=== PATIENT | male | born 1965 | race Caucasian/White ===

== ENCOUNTER 2016-12-12 12:27 | Outpatient (CLI) | payer OTHER ==
[2016-03-25 07:34] VITALS: BMI 23.6
[2016-12-12 12:45] LABS: ADD URINE MICROSCOPIC NO; BILIRUBIN,URINE Negative (NEGATIVE); KETONES,URINE Negative (NEGATIVE); LEUKOCYTE ESTERASE ,URINE Negative (NEGATIVE); NITRITE,URINE Negative (NEGATIVE); PH,URINE 5.5 (5-9); PROTEIN,URINE Negative (NEGATIVE); URINE, BLOOD Negative (NEGATIVE)
== END 2016-12-12 12:28 | disposition home or self-care (01) ==
LOC: LAB 12:27
PROVIDERS: ATTEND Emergency Medicine
DX: R10.30 Lower abdominal pain, unspecified (principal); Z12.5 Encounter for screening for malignant neoplasm of prostate
CPT/HCPCS: 36415; 81001

== ENCOUNTER 2016-12-28 07:27 | Outpatient (CLI) | payer OTHER ==
[2016-03-25 07:34] VITALS: BMI 23.6
[2016-12-28 07:55] LABS: BASOPHILS % (AUTO) 0.5 % (0.0-3.0); EOSINOPHILS # (AUTO) 0.1 K/ul (0.0-0.7); EOSINOPHILS % (AUTO) 0.7 % (0.0-7.0); HEMATOCRIT 41.6 % (42.0-52.0); HEMOGLOBIN 14.4 g/dl (14.0-18.0); IMMATURE GRANULOCYTE % (AUTO) 0.4 % (0.0-5.0); LYMPHOCYTES # (AUTO) 2.6 K/uL (0.60-3.4); MEAN CORPUSCULAR HEMOGLOBIN 28.6 pg (27.0-31.0); MEAN CORPUSCULAR HGB CONC 34.6 (31.8-35.4); MEAN CORPUSCULAR VOLUME 82.7 fl (80.0-94.0); MONOCYTES # (AUTO) 0.6 K/uL (0.4-2.0); MONOCYTES % (AUTO) 7.2 (0-10); NEUTROPHILS # (AUTO) 5.1 K/ul (2.0-6.9); NEUTROPHILS % (AUTO) 60.2; PLATELET COUNT 280 10^3/uL (140-440); RED BLOOD COUNT 5.03 10^6/ul (4.70-6.10); WHITE BLOOD COUNT 8.44 K/ul (4.2-10.2)
[2016-12-28 08:21] LABS: ALBUMIN 3.9 g/dL (3.4-5.0); ALBUMIN/GLOBULIN RATIO 1.08; BILIRUBIN,TOTAL 0.79 mg/dL (0.00-1.20); BUN/CREATININE RATIO 8.26; CALCIUM 9.6 mg/dL (8.2-10.2); CHOL/HDL RATIO 5.4 (4.5-6.4); CREATININE 1.21 mg/dL (0.60-1.10); TOTAL PROTEIN 7.5 g/dL (6.4-8.2)
== END 2016-12-28 07:28 | disposition home or self-care (01) ==
LOC: LAB 07:27
PROVIDERS: ATTEND Nurse Practitioner Family
DX: E78.5 Hyperlipidemia, unspecified (principal)
CPT/HCPCS: 36415; 80053; 80061; 85025

== ENCOUNTER 2017-01-02 14:01 | Outpatient (CLI) | payer OTHER ==
[2016-03-25 07:34] VITALS: BMI 23.6
--- NOTE | 2017-01-02 14:34 | US ---
EXAM: Ultrasound right groin HISTORY: Right lower abdominal/groin pain COMPARISON: None available TECHNIQUE: Whelan-scale and color Doppler images FINDINGS: No solid or cystic masses seen in the area concern. No subcutaneous edema detected. IMPRESSION: No sonographic abnormality in the area of concern.
--- NOTE | 2017-01-02 14:34 | US ---
EXAM: Ultrasound groin, left. HISTORY: Left groin tenderness for 1 year. No injury. FINDINGS: Whelan-scale ultrasound and color Doppler imaging were performed in the region of interest described as the left lower quadrant/groin area. No abnormalities, masses or fluid collections were identified in this region. Visualized urinary bladder was grossly within normal limits. IMPRESSION: No abnormalities identified sonographically. If indicated, correlation with enhanced CT can be cons idered.
== END 2017-01-02 14:02 | disposition home or self-care (01) ==
LOC: RAD 14:01
PROVIDERS: ATTEND Emergency Medicine
DX: R10.30 Lower abdominal pain, unspecified (principal)
CPT/HCPCS: 76882

== ENCOUNTER 2017-04-26 07:56 | Outpatient (CLI) ==
[2016-03-25 07:34] VITALS: BMI 23.6
[2017-04-26 08:59] LABS: ALBUMIN 4.1 g/dL (3.4-5.0); ALBUMIN/GLOBULIN RATIO 1.24; BILIRUBIN,TOTAL 0.89 mg/dL (0.00-1.20); BUN/CREATININE RATIO 8.49; CHOL/HDL RATIO 3.9 (4.5-6.4); CREATININE 1.06 mg/dL (0.60-1.10); TOTAL PROTEIN 7.4 g/dL (6.4-8.2)
[2017-04-26 09:06] LABS: BASOPHILS % (AUTO) 0.4 % (0.0-3.0); EOSINOPHILS # (AUTO) 0.1 K/ul (0.0-0.7); HEMATOCRIT 41.6 % (42.0-52.0); HEMOGLOBIN 14.6 g/dl (14.0-18.0); IMMATURE GRANULOCYTE % (AUTO) 0.3 % (0.0-5.0); LYMPHOCYTES # (AUTO) 2.4 K/uL (0.60-3.4); LYMPHOCYTES % (AUTO) 33.5 (10.0-50.0); MEAN CORPUSCULAR HGB CONC 35.1 (31.8-35.4); MEAN CORPUSCULAR VOLUME 82.5 fl (80.0-94.0); MONOCYTES # (AUTO) 0.5 K/uL (0.4-2.0); NEUTROPHILS # (AUTO) 4.2 K/ul (2.0-6.9); NEUTROPHILS % (AUTO) 57.8; PLATELET COUNT 268 10^3/uL (140-440); RED BLOOD COUNT 5.04 10^6/ul (4.70-6.10); WHITE BLOOD COUNT 7.25 K/ul (4.2-10.2)
== END 2017-04-26 07:57 | disposition home or self-care (01) ==
LOC: LAB 07:56
PROVIDERS: ATTEND Emergency Medicine
DX: E78.2 Mixed hyperlipidemia (principal); I10 Essential (primary) hypertension; Z87.19 Personal history of other diseases of the digestive system
CPT/HCPCS: 36415; 80053; 80061; 82150; 83690; 84443; 85025

== ENCOUNTER 2017-04-27 11:02 | Outpatient (CLI) ==
[2016-03-25 07:34] VITALS: BMI 23.6
--- NOTE | 2017-04-27 11:48 | CT ---
EXAM: CT Abdomen without contrast. HISTORY: Chronic pancreatitis. Upper abdominal pain. COMPARISON: 04/02/2015. TECHNIQUE: Multiple axial images of the abdomen were obtained without intravenous contrast. Images were reformatted in the coronal plane. FINDINGS: Please note that evaluation of the abdominal structures is limited due to lack of intrave nous contrast. The lung bases are clear. Kyphoplasty changes noted at L1. Posterior and anterior lumbar interbody fusion and laminectomy changes noted at L5-S1. The right L5 pedicle screw is located lateral to th e vertebral body. Gallbladder is absent. Posterior right hepatic lobe cyst is stable. Pancreas appears homogeneous w ithout adjacent inflammation. The spleen and adrenal glands demonstrate normal contour. No calcifi ed renal stones or hydronephrosis detected. The bowel is normal in course and caliber without evidence for obstruction or inflammatory process. The appendix is normal. Colonic diverticulosis identified. Small fat-containing umbilical hernia noted. No free fluid or free air identified. Visualized urinary bladder is unremarkable. Probable clip in the left rectus sheath on axial image 61. IMPRESSION: No acute abnormality within the abdomen.
== END 2017-04-27 11:03 | disposition home or self-care (01) ==
LOC: RAD 11:02
PROVIDERS: ATTEND Emergency Medicine
DX: K86.1 Other chronic pancreatitis (principal)

== ENCOUNTER 2017-04-28 11:40 | Outpatient (CLI) ==
[2016-03-25 07:34] VITALS: BMI 23.6
[2017-04-28 12:08] LABS: AMYLASE 74 U/L (25-115); LIPASE 35 U/L (8-78)
== END 2017-04-28 11:41 | disposition home or self-care (01) ==
LOC: LAB 11:40
PROVIDERS: ATTEND Emergency Medicine
DX: K86.1 Other chronic pancreatitis (principal); Z87.19 Personal history of other diseases of the digestive system
CPT/HCPCS: 36415; 82150; 83690

== ENCOUNTER 2017-08-31 09:56 | Outpatient (CLI) ==
[2016-03-25 07:34] VITALS: BMI 23.6
== END 2017-08-31 09:57 | disposition home or self-care (01) ==
LOC: LAB 09:56
PROVIDERS: ATTEND Emergency Medicine
DX: E78.2 Mixed hyperlipidemia (principal); E34.9 Endocrine disorder, unspecified
CPT/HCPCS: 36415; 80061; 84403

== ENCOUNTER 2018-01-02 06:57 | Outpatient (CLI) ==
[2016-03-25 07:34] VITALS: BMI 23.6
== END 2018-01-02 06:58 | disposition home or self-care (01) ==
LOC: LAB 06:57
PROVIDERS: ATTEND Emergency Medicine
DX: E78.2 Mixed hyperlipidemia (principal); I10 Essential (primary) hypertension; D50.8 Other iron deficiency anemias
CPT/HCPCS: 36415; 80053; 80061; 82607; 82728; 82746; 83540; 83550; 84443; 84466; 85025; 85045

== ENCOUNTER 2018-05-01 08:19 | Outpatient (CLI) ==
[2016-03-25 07:34] VITALS: BMI 23.6
== END 2018-05-01 08:20 | disposition home or self-care (01) ==
LOC: LAB 08:19
PROVIDERS: ATTEND Emergency Medicine
DX: E53.8 Deficiency of other specified B group vitamins (principal); D50.8 Other iron deficiency anemias; I10 Essential (primary) hypertension
CPT/HCPCS: 36415; 80053; 80061; 84443; 85025

== ENCOUNTER 2018-05-09 18:39 | Outpatient (CLI) ==
[2016-03-25 07:34] VITALS: BMI 23.6
== END 2018-05-09 18:40 | disposition home or self-care (01) ==
LOC: FCC-LAB 18:39
PROVIDERS: ATTEND General Practice
DX: Z12.11 Encounter for screening for malignant neoplasm of colon (principal)

== ENCOUNTER 2018-07-18 07:44 | Outpatient (CLI) | payer OTHER ==
[2016-03-25 07:34] VITALS: BMI 23.6
== END 2018-07-18 07:45 | disposition home or self-care (01) ==
LOC: LAB 07:44
PROVIDERS: ATTEND General Practice
DX: R10.30 Lower abdominal pain, unspecified (principal); I10 Essential (primary) hypertension; R79.89 Other specified abnormal findings of blood chemistry
CPT/HCPCS: 36415; 80053; 80061; 81001; 85025

== ENCOUNTER 2018-11-08 14:19 | Outpatient (CLI) ==
[2018-09-28 07:24] VITALS: BMI 24.5
--- NOTE | 2018-11-08 14:44 | DI ---
EXAM: Left ankle three views HISTORY: Ankle pain. FINDINGS: Joints of the ankle appear normal. Small plantar surface calcaneal spur. There is mild b raúl spurring of the posterior calcaneus. IMPRESSION: 1. Spurring of the calcaneus. Otherwise unremarkable.
--- NOTE | 2018-11-08 14:46 | DI ---
EXAM: Three views of the left foot. History: Left foot pain. Comparison: Left foot radiograph 05/18/2015. Findings: No acute fracture or dislocation. 9 mm plantar spur and small enthesiophyte at the insert ion of the Achilles tendon. Joint spaces are preserved. No abnormal calcifications or radiopaque fo reign bodies. Impression: 1. No acute osseous abnormality. 2. Calcaneal enthesiopathy
== END 2018-11-08 14:20 | disposition home or self-care (01) ==
LOC: RAD 14:19
PROVIDERS: ATTEND General Practice
DX: M25.572 Pain in left ankle and joints of left foot (principal)

== ENCOUNTER 2018-12-24 15:30 | Outpatient (RCR) ==
[2018-09-28 07:24] VITALS: BMI 24.5
--- NOTE | 2018-12-13 15:52 | RS.OPPTEV2 ---
Date of Note: 12/11/18 Visit #: 1 Number of visits approved by Insurance: 20 visits per year Date of Evaluation: 12/11/18 Payer Source: Insurance Treatment Diagnosis: Left foot pain, OA of left mid foot History of Condition/Mechanism of Injury:: Reports no known injury at time of onset of pain. States pain has been for approximately 5 weeks. Prior Level of Function.....Patient was independent with: ADL's, Self Care, Work /Vocation, Caregiving, Ambulation/Mobility, Community Integration/Access Functional Limitations: Standing, Squatting, Ambulation, Community Access/ Integration Current Subjective/complaints:: Mr. Segovia reports left foot mid to forefoot pain. States he has been wearing new shoes for the last couple of weeks and can tell that his pain is improving. States he may have swelling in the foot. He cannot tolerate his shoe tied as tight as it is on the right foot. States pain is on the top of the foot. He was given a Prednisone for 10 days, and did not feel improvement. He tries to prop up his foot at work or home when he can. He has tried icing the foot. Reports previous issue with Plantar fasciitis in this foot. States pain is not anything like that. 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 Treatment Side (optional): Left Medical History Medical History: Hypertension Surgical History Comments:: ALIF L5/S1 January 2013, Kyphoplasty L1 January 2015 Smoking Status: Never smoker Diagnostic Testing/Imaging:: States he had Xrays of the foot that ruled out a stress fracture. Hx Home Medications: Losartan,Atorvastatin, Nucynta Patient's Goals: His goal is to get relief of foot pain. Pain Assessment - Pain Description Pain Location: Left mid to forefoot pain Pain Description: Aching Current Pain Intensity: not quantified Functional Outcome Measure LE Functional Scale: 55 (55/80=31.25% impairment) - G Codes & Severity Modifier G Codes & Modifier: NA Source of G Code score: NA Observation - Observation Inspection: Left foot demonstrates mild puffiness at the base of the toes 2-4. No discoloration or excessive edema noted. Comments: Demonstrates normal longitudinal arch bilaterally in weight bearing stance. Girth Measurement Lower: Metheads left 23.5, right 23.5 cm. 6 cm in from medial malleoil: left 23 cm, right 23 cm. Figure 8: left 51 cm, right 52 cm Gait - Gait Pattern Gait Comments: Patient ambulates with slight decreased stance on the left LE. Demonstrates decreased push off on the left LE. Ankle ROM: Bilaterally WFL's Ankle Muscle Strength: Bilaterally WFL's - Left Ankle ROM Comments: Patient able to flex and extend his toes, with some discomfort reports in the mid foot. - Left Ankle Strength Left Dorsiflexion: 5 Normal Left Plantar flexion: 5 Normal Left Eversion: 5 Normal Left Inversion: 5 Normal Comments: No pain with MMT of ankle, toe extension and flexion 5/5. Some discomfort at mid/forefoot with full flexion. - Right Ankle Strength Right Dorsiflexion: 5 Normal Right Plantarflexion: 5 Normal Right Eversion: 5 Normal Right Inversion: 5 Normal Palpation Comments:: Tenderness with moderate pressure over medial portion of Navicular, over the lateral and intermediate Cuneiforms, and over Cuboid and tuberosity of 5th metatarsal. AP glides of the metatarsals cause discomfort, especially with the 3rd, 4th , and 5th metatarsals. Reports tenderness with palpation over the tuberosity of the 5th metatarsal. - Treatment Modality: Ultrasound Parameters/Method Applied: 1.2 w/cm2 continuous to volar and dorsal aspect of midfoot X 9 mins. Patient Position: Sitting Interventions - Exercise/Activities/Manual Therapy Exercises/Activities: Discussed mechanics of the foot and proper shoe wear and/ or orthotics to provide appriopriate support of the bones of the foot, especially if OA is present. Manual Therapy: AP glides of Metatarsals HOME EXERCISE PROGRAM: None today - Charges Timed Code Treatment Minutes: 9 mins Total Treatment Time: 42 mins Procedures billed for this date of service:: JULIEN Delgado, US EVALUATION COMPLEXITY LEVEL EVALUATION COMPLEXITY LEVEL: HISTORY: Low (prior plantar fasciitis), EXAM OF BODY SYSTEMS: Low, CLINICAL PRESENTATION: Low, CLINICAL DECISION MAKING: Low Assessment Assessment: Patient presents to therapy with a diagnosis of osteoarthritis of left midfoot. He reports pain in the left foot mid/forefoot with weight bearing. Would benefit from metatarsal pad and arch support. Modalities and gentle Joint Mobilizations may help decreased pain and inflammation in the midfoot. Patient Education: Education of diagnosis, Body/Joint mechanics, Activity Modification, Education of Plan of Care Rehab Potential: Good Short Term Goals Goal #1: Patient independent and compliant with basic HEP. Goal to be met by: 12/20/18 Goal #2: Pt to report minimal left foot pain with standing and walking. Goal to be met by: 12/20/18 Goal #3: . Goal #4: . Senior Living Goals Goal #1: Pt able to ambulate community distances w/o dev & min. to no L foot pain. Goal to be met by: 01/05/19 Goal #2: Pt able to work full shift with minimal to no left foot pain. Goal to be met by: 01/05/19 Goal #3: Score on LE functional scale improved to 75/80. Goal to be met by: 01/05/19 Goal #4: . Plan - Treatment to be Provided Procedures: Therapeutic Exercises, Therapeutic Activity, Manual Therapy, Patient Education Modalities: Ultrasound/Phonophoresis, Class IV Laser, Iontophoresis, Cryotherapy , Hot Packs - Treatment Plan Frequency: 3 X week Duration: 3 weeks Dates of Candle Molder Machine Goals: 01/05/19 Expiration date of current Insurance Approval:: NA - Treatment Code (1) Left foot pain Code(s): M79.672 - PAIN IN LEFT FOOT Comments: M79.672 (2) Metatarsalgia Code(s): M77.40 - METATARSALGIA, UNSPECIFIED FOOT Qualifiers: Laterality: left Qualified Code(s): M77.42 - Metatarsalgia, left foot
--- NOTE | 2018-12-19 09:10 | RS.OPPTDN ---
Subjective Date of Note: 12/18/18 Visit #: 2 Number of visits approved by Insurance: NA Date of Evaluation: 12/11/18 Payer Source: Insurance Treatment Diagnosis: Left foot pain, OA of left mid foot Current Subjective/complaints:: States his foot was hurting quite a bit yesterday. 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 States he elevates his foot when he can. Pain Assessment - Pain Description Pain Location: left mid foot Current Pain Intensity: mild discomfort - Treatment Modality: Ultrasound Parameters/Method Applied: 1.0 w/cm2 continuous X 10 mins to volar and dorsal aspect of mid foot. Patient Position: Sitting - Heat/Cryotherapy Treatment: Hot Pack Comments:: X 10 mins to left foot prior to US. Interventions - Exercise/Activities/Manual Therapy Exercises/Activities: none Manual Therapy: AP glides of Metatarsals with directional massage to foot. Also stretching, of toe flexors and heel cord. Total minutes of Manual Therapy: X 14 mins HOME EXERCISE PROGRAM: None today - Objective Findings Observations,measurements,etc.: Demonstrates swelling in the left mid-forefoot region. - Charges Timed Code Treatment Minutes: 24 mins Total Treatment Time: 34 mins Procedures billed for this date of service:: HP, US, manual therapy Assessment: Patient with left mid foot pain with weight bearing activities. Demonstrates swelling in the dorsal aspect of the left foot today. Treatment of modalities and manual therapy should help relieve swelling and pain. Patient Education: Education of diagnosis, Activity Modification, Education of Plan of Care Short Term Goals Goal #1: Patient independent and compliant with basic HEP. Goal to be met by: 12/20/18 Goal #2: Pt to report minimal left foot pain with standing and walking. Goal to be met by: 12/20/18 Goal #3: . Goal #4: . Cloud Software Engineer Goals Goal #1: Pt able to ambulate community distances w/o dev & min. to no L foot pain. Goal to be met by: 01/05/19 Goal #2: Pt able to work full shift with minimal to no left foot pain. Goal to be met by: 01/05/19 Goal #3: Score on LE functional scale improved to 75/80. Goal to be met by: 01/05/19 Goal #4: . Plan Dates of Cloud Software Engineer Goals: 01/05/19 Expiration date of current Insurance Approval:: NA PLAN: continue joint mobs, directional massage and modalities.
--- NOTE | 2018-12-21 12:01 | RS.OPPTDN ---
Subjective Date of Note: 12/20/18 Visit #: 3 Number of visits approved by Insurance: NA Date of Evaluation: 12/11/18 Payer Source: Insurance Treatment Diagnosis: Left foot pain, OA of left mid foot Current Subjective/complaints:: Reports discomfort at mid foot, at base of toes and just below the lateral malleoli today. States the top of the foot is not as tender as it was. *Precautions: recent lumbar surgery Pain Assessment - Pain Description Pain Location: pain at base of toes, mid foot, and inferior to lateral malleoli - Treatment Modality: Ultrasound Parameters/Method Applied: X 12 mins total: 8 mins to dorsum of foot mid to forefoot and inferior to lateral malleoli, 4 mins to volar aspect of mid foot. Patient Position: Sitting Interventions - Exercise/Activities/Manual Therapy Exercises/Activities: none Manual Therapy: AP glides of Metatarsals with directional massage to foot. Also stretching, of toe flexors and heel cord. Total minutes of Manual Therapy: X 12 mins HOME EXERCISE PROGRAM: None today - Charges Timed Code Treatment Minutes: 24 mins Total Treatment Time: 24 mins Procedures billed for this date of service:: US, Man therapy Assessment: Increased pain in other areas of the foot/ankle. Describes less tenderness on the top of the foot. May benefit from continued treatment of modalities. Patient Education: Education of Plan of Care Short Term Goals Goal #1: Patient independent and compliant with basic HEP. Goal to be met by: 12/20/18 Goal #2: Pt to report minimal left foot pain with standing and walking. Goal to be met by: 12/20/18 Comments:: Pain dependent on amount of activity. Goal #3: . Goal #4: . Prison Goals Goal #1: Pt able to ambulate community distances w/o dev & min. to no L foot pain. Goal to be met by: 01/05/19 Goal #2: Pt able to work full shift with minimal to no left foot pain. Goal to be met by: 01/05/19 Goal #3: Score on LE functional scale improved to 75/80. Goal to be met by: 01/05/19 Goal #4: . Plan Dates of Biology Adjunct Instructor Goals: 01/05/19 Expiration date of current Insurance Approval:: NA PLAN: continue modalities, may add foot exercises.
--- NOTE | 2018-12-24 12:11 | RS.OPPTDN ---
Subjective Date of Note: 12/21/18 Visit #: 4 Number of visits approved by Insurance: NA Date of Evaluation: 12/11/18 Payer Source: Insurance Treatment Diagnosis: Left foot pain, OA of left mid foot Current Subjective/complaints:: Reports no pain below lateral malleoli today. Reports discomfort with extension of the toes. Able to perform towel curl exercise without discomfort. States he may have follow up appointment with Dr. Wilson next week. *Precautions: recent lumbar surgery Pain Assessment - Pain Description Pain Location: mid foot Current Pain Intensity: mild - Treatment Modality: Ultrasound Parameters/Method Applied: X 12 mins total to dorsum and volar aspect of the left foot over mid and forefoot. Patient Position: Sitting - Heat/Cryotherapy Treatment: Hot Pack Comments:: X 10 mins to left mid-fore foot prior to US and manual therapy Interventions - Exercise/Activities/Manual Therapy Exercises/Activities: Performed towel curls in the department without discomfort. Reports more discomfort with toe extension at the base of the toes. Total minutes of Exercise: 5 mins Manual Therapy: AP glides of Metatarsals, focus on 3rd, 4th, and 5th with directional massage to foot. Passive stretching of plantar fascia and heel cord. Patient reports discomfort at base of toes with stretching into extension. Total minutes of Manual Therapy: X 13 mins HOME EXERCISE PROGRAM: towel curls - Charges Timed Code Treatment Minutes: 30 mins Total Treatment Time: 42 mins Procedures billed for this date of service:: US, manual therapy Assessment: Patient reports foot pain continues depend on activity. He may go back to Dr. Morales next week for follow-up. Began some exercises this week to see how this would effect his foot pain. Patient Education: Body/Joint mechanics, Home Exercise Program, Education of Plan of Care Short Term Goals Goal #1: Patient independent and compliant with basic HEP. Goal to be met by: 12/20/18 Progress towards Goal:: Progressing Goal #2: Pt to report minimal left foot pain with standing and walking. Goal to be met by: 12/20/18 Goal #3: . Goal #4: . Inspector Repairer Goals Goal #1: Pt able to ambulate community distances w/o dev & min. to no L foot pain. Goal to be met by: 01/05/19 Goal #2: Pt able to work full shift with minimal to no left foot pain. Goal to be met by: 01/05/19 Goal #3: Score on LE functional scale improved to 75/80. Goal to be met by: 01/05/19 Goal #4: . Plan Dates of Senior Living Goals: 01/05/19 Expiration date of current Insurance Approval:: NA PLAN: May continue with modalities. Will assess how his foot feels with HEP.
--- NOTE | 2018-12-25 09:51 | RS.OPPTDN ---
Subjective Date of Note: 12/24/18 Visit #: 5 Number of visits approved by Insurance: NA Date of Evaluation: 12/11/18 Payer Source: Insurance Treatment Diagnosis: Left foot pain, OA of left mid foot Current Subjective/complaints:: States his foot feels better today. States he goes back to Dr. Morales next week. He wonders if his foot feels better today because he was not on it as much over the weekend. He thinks he will be able to tell tomorrow. States he did the towel curl exercises over the weekend without increasing discomfort in the foot. *Precautions: recent lumbar surgery Pain Assessment - Pain Description Current Pain Intensity: mild discomfort at midfoot and base of toes - Treatment Modality: Ultrasound Parameters/Method Applied: X 12 mins total: 8 mns @ 1.2 w/cm2 continuous along volar aspect of midfoot and forefoot at base of toes 2-5. Also 4 mins @ 1.2 w/ cm2 continuous to volar aspect of mid and forefoot. Patient Position: Sitting - Heat/Cryotherapy Treatment: Hot Pack (X 10 mins prior to US and manual therapy) Interventions - Exercise/Activities/Manual Therapy Exercises/Activities: Performed towel curls in the department without discomfort. Reports more discomfort with toe extension at the base of the toes. Total minutes of Exercise: 4 mins Manual Therapy: AP glides of Metatarsals, focus on 3rd, 4th, and 5th with directional massage to foot. Passive stretching of plantar fascia and heel cord. Patient reports discomfort at base of toes with stretching into extension. Total minutes of Manual Therapy: X 15 mins HOME EXERCISE PROGRAM: towel curls - Charges Timed Code Treatment Minutes: 31 mins Total Treatment Time: 41 mins Procedures billed for this date of service:: US, Manual therapy Assessment: States his foot is feeling better today. Doesn't know if it is actually better or just feels better because he is less active on the weekend. He feels he should be able to tell tomorrow after he was on his feet all day today. Patient Education: Education of diagnosis, Body/Joint mechanics, Education of Plan of Care Patient demonstrates compliance with HEP?: Yes Short Term Goals Goal #1: Patient independent and compliant with basic HEP. Goal to be met by: 01/01/19 Progress towards Goal:: Progressing Goal #2: Pt to report minimal left foot pain with standing and walking. Goal to be met by: 01/01/19 Progress towards Goal:: Progressing Comments:: not consistent, may be based on activity level Goal #3: . Goal #4: . Strategic Communications Manager Goals Goal #1: Pt able to ambulate community distances w/o dev & min. to no L foot pain. Goal to be met by: 01/05/19 Goal #2: Pt able to work full shift with minimal to no left foot pain. Goal to be met by: 01/05/19 Progress towards goal: Progressing Comments: Better today, first day workiing after the weekend Goal #3: Score on LE functional scale improved to 75/80. Goal to be met by: 01/05/19 Goal #4: . Plan Dates of Strategic Communications Manager Goals: 01/05/19 Expiration date of current Insurance Approval:: NA PLAN: Continue with treatment and add more exercises if necessary. May decided this week if further treatment is indicated based on his symptoms.
== END 2018-12-25 23:59 ==
PROVIDERS: ATTEND Orthopaedic Surgery
DX: M19.072 Primary osteoarthritis, left ankle and foot (principal); M79.672 Pain in left foot; M77.42 Metatarsalgia, left foot

== ENCOUNTER 2018-12-28 15:30 | Outpatient (RCR) ==
[2018-09-28 07:24] VITALS: BMI 24.5
--- NOTE | 2018-12-27 10:12 | RS.OPPTDN ---
Subjective Date of Note: 12/26/18 Visit #: 6 Number of visits approved by Insurance: NA Date of Evaluation: 12/11/18 Payer Source: Insurance Treatment Diagnosis: Left foot pain, OA of left mid foot Current Subjective/complaints:: States the left foot is definitely getting better. States a month ago he could hardly walk on it after a day of work. Now his pain is less, but still depends on how much he has been on his feet. He goes back to Dr. Morales a week from today. States he is having some discomfort at the base of the great toe. States he walked a short distance in some crocs the other night and could tell the lack of support caused some discomfort in his foot compared to his shoes he wears to work. *Precautions: . Pain Assessment - Pain Description Pain Location: left forefoot/mid foot Current Pain Intensity: mild discomfort - Treatment Modality: Ultrasound Parameters/Method Applied: 13 mins total: 8 mins to dorsum of foot with focus on midfoot and forefoot. 5 mins to volar aspect of midfoot and forefoot. Started adding area of 1st MTP joint. Interventions - Exercise/Activities/Manual Therapy Exercises/Activities: Toe flexion and extension today following treatment with reports of no discomfort. Total minutes of Exercise: 2 mins Manual Therapy: AP glides of Metatarsals focus on 1st through 5th and 1st MTP joint. with directional massage to foot. Passive stretching of plantar fascia Total minutes of Manual Therapy: X 14 mins HOME EXERCISE PROGRAM: towel curls - Charges Timed Code Treatment Minutes: 27 mins Total Treatment Time: 35 mins Procedures billed for this date of service:: US, Manual therapy Assessment: Jonathan reports he has definitely seen improvement with left foot pain. He has seen that different support in shoe wear makes a difference in his pain. He may need to have a metatarsal pad in his shoes for added support in the mid-forefoot. Patient Education: Education of diagnosis, Body/Joint mechanics, Home Exercise Program, Education of Plan of Care Patient demonstrates compliance with HEP?: Yes Short Term Goals Goal #1: Patient independent and compliant with basic HEP. Goal to be met by: 01/01/19 Progress towards Goal:: Met Goal #2: Pt to report minimal left foot pain with standing and walking. Goal to be met by: 01/01/19 Progress towards Goal:: Progressing Goal #3: . Goal #4: . Detention Goals Goal #1: Pt able to ambulate community distances w/o dev & min. to no L foot pain. Goal to be met by: 01/05/19 Progress towards goal: Progressing Comments: Not consistent, based on amount of activity Goal #2: Pt able to work full shift with minimal to no left foot pain. Goal to be met by: 01/05/19 Progress towards goal: Progressing Comments: dependent on how much he has been on his feet and the day of the wek Goal #3: Score on LE functional scale improved to 75/80. Goal to be met by: 01/05/19 Goal #4: . Plan Dates of Satellite Tv Technician Goals: 01/05/19 Expiration date of current Insurance Approval:: NA PLAN: May try 1-2 more sessions. Patient goes back to Dr. Morales next week.
--- NOTE | 2018-12-31 08:38 | RS.OPPTDN ---
Subjective Date of Note: 12/28/18 Visit #: 7 Number of visits approved by Insurance: NA 20 visit max per year Date of Evaluation: 12/11/18 Payer Source: Insurance Treatment Diagnosis: Left foot pain, OA of left mid foot Current Subjective/complaints:: States pain today is more toward ball of foot and great toe. States he is performing towel curls for HEP. He goes back to see Dr. Morales next week. *Precautions: . - Treatment Modality: Ultrasound Parameters/Method Applied: 1.5 w/cm2 continuous X 13 mins total: volar and doral aspect of mid foot and forefoot toward medial side of foot, including MTP joint of great toe Patient Position: Sitting - Heat/Cryotherapy Treatment: Hot Pack (X 15 mins prior to US and manual therapy) Interventions - Exercise/Activities/Manual Therapy Exercises/Activities: Toe flexion and extension today following treatment with reports of no discomfort. Manual Therapy: AP glides of Metatarsals focus on 1st through 5th and 1st MTP joint. with directional massage to foot. Passive stretching of plantar fascia Total minutes of Manual Therapy: 12 mins HOME EXERCISE PROGRAM: towel curls - Charges Timed Code Treatment Minutes: 25 mins Total Treatment Time: 40 mins Procedures billed for this date of service:: HP, US, Manual therapy Assessment: Left foot pain still appears to be dependent on amount of activity and weight bearing. He returns to Dr. Morales for a follow up appointment next week. He may benefit from a metatarsal pad for support to relieve forefoot pain. Patient Education: Education of diagnosis, Body/Joint mechanics, Education of Plan of Care Short Term Goals Goal #1: Patient independent and compliant with basic HEP. Goal to be met by: 01/01/19 Progress towards Goal:: Met Goal #2: Pt to report minimal left foot pain with standing and walking. Goal to be met by: 01/01/19 Progress towards Goal:: Progressing Comments:: Depends on amount of activity Goal #3: . Goal #4: . Kick Plate Installer Goals Goal #1: Pt able to ambulate community distances w/o dev & min. to no L foot pain. Goal to be met by: 01/05/19 Progress towards goal: Progressing Comments: improved, but depends on amount of activity Goal #2: Pt able to work full shift with minimal to no left foot pain. Goal to be met by: 01/05/19 Progress towards goal: Progressing Comments: improved, but depends on the day of the week Goal #3: Score on LE functional scale improved to 75/80. Goal to be met by: 01/05/19 Goal #4: . Plan Dates of Kick Plate Installer Goals: 01/05/19 Expiration date of current Insurance Approval:: NA PLAN: Jonathan follows up with Dr. Morales next week.
== END 2019-01-25 23:59 ==
PROVIDERS: ATTEND Orthopaedic Surgery
DX: M19.072 Primary osteoarthritis, left ankle and foot (principal)